=== PATIENT | female | born 1960 | race Asian ===

== ENCOUNTER 2016-07-23 10:45 | Emergency (ER) | payer OTHER ==
[2016-07-23 10:50] VITALS: BP 125/81; PULSE 90; TEMP 98.6; BMI 24.0
--- NOTE | 2016-07-23 12:04 | PDOC ---
History of Present Illness - General Chief Complaint: Cold Symptoms Stated Complaint: COUGH, FEVER Time Seen by Provider: 07/23/16 11:49 History Source: Patient - History of Present Illness Timing/Duration: reports: other Associated Symptoms: reports: cough, fever/chills. denies: earache, headache, nasal congestion, nasal drainage, shortness of breath, sore throat, wheezing Past History - Past Medical History Allergies/Adverse Reactions: Allergies Allergy/AdvReac Type Severity Reaction Status Date / Time Sulfa (Sulfonamide Allergy Verified 07/23/16 10:46 Antibiotics) sulfamethoxazole Allergy Verified 07/23/16 10:46 [From Bactrim] trimethoprim [From Bactrim] Allergy Verified 07/23/16 10:46 Home Medications: Ambulatory Orders Atorvastatin Ca [Lipitor] 10 mg PO HS 05/09/14 Calcium 500 mg PO DAILY 05/09/14 Calcium Polycarbophil [Fiber Tabs] 1 tab PO DAILY 05/09/14 Cholecalciferol (Vitamin D3) [Vitamin D3] 1,000 unit PO DAILY 05/09/14 Ciprofloxacin [Cipro -] 500 mg PO BID 05/09/14 Melatonin 0 mg PO HS 05/09/14 Metronidazole [Flagyl] 500 mg PO BID 05/09/14 Metronidazole [Flagyl] 500 mg PO Q12HR #20 tablet 05/09/14 Multivitamins [Multivit ([facility] Formulary)] 1 tab PO DAILY 05/09/14 Albuterol Sulfate Inhaler - [Ventolin HFA Inhaler -] 1 - 2 inh PO Q4H #1 inhaler 07/23/16 Hypercholesterolemia: Yes - Psycho/Social/Smoking Cessation Hx Anxiety: No Suicidal Ideation: No Smoking History: Never smoked Have you smoked in the past 12 months: No Information on smoking cessation initiated: No Hx Alcohol Use: No Drug/Substance Use Hx: No Substance Use Type: None Review of Systems - Review of Systems Constitutional: Yes: Fever Respiratory: Yes: Cough. No: Shortness of Breath, Wheezing ABD/GI: No: Diarrhea, Nausea, Vomiting *Physical Exam - Vital Signs Last Vital Signs Temp Pulse Resp BP Pulse Ox 98.6 F 90 18 125/81 100 07/23/16 10:46 07/23/16 10:46 07/23/16 10:46 07/23/16 10:46 07/23/16 10:46 - Physical Exam General Appearance: Yes: Appropriately Dressed. No: Apparent Distress HEENT: positive: Normal ENT Inspection, Normal Voice, TMs Normal, Pharynx Normal. negative: Scleral Icterus (R), Scleral Icterus (L) Neck: negative: Lymphadenopathy (R), Lymphadenopathy (L) Respiratory/Chest: positive: Lungs Clear, Normal Breath Sounds. negative: Respiratory Distress Cardiovascular: positive: Regular Rate, S1, S2 Integumentary: positive: Dry, Warm Neurologic: positive: Fully Oriented, Alert, Normal Mood/Affect Medical Decision Making - Medical Decision Making 07/23/16 12:02 56 yo F, no sig hx, here w/ cough and fever x 2 days. Also reports body aches. 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 Patient denying any shortness of breath or chest pain. Currently taking Tylenol. Patient stable with unremarkable exam in ED. Possible viral uri , influenza testing pending 07/23/16 12:34 Influenza negative. Pt now requesting refill of alb pump as she states she has a h/o asthma but no flares in years. Denies sob or wheezing currently. Dc w/ rx and PMD f/u as needed 07/23/16 12:36 *DC/Admit/Observation/Transfer Diagnosis at time of Disposition: URI (upper respiratory infection) Qualifiers: URI type: unspecified viral URI Qualified Code(s): J06.9 - Acute upper respiratory infection, unspecified; B97.89 - Other viral agents as the cause of diseases classified elsewhere - Discharge Dispostion Disposition: HOME Condition at time of disposition: Stable - Prescriptions Prescriptions: Albuterol Sulfate Inhaler - [Ventolin HFA Inhaler -] 1 - 2 inh PO Q4H #1 inhaler - Referrals Referrals: Josh Morris [Primary Care Provider] - - Patient Instructions Printed Discharge Instructions: DI for Viral Upper Respiratory Infection -- Adult Additional Instructions: Rest, maintain adequate hydration and take tylenol or motrin as needed - Post Discharge Activity Work/School Note: Back to Work
== END 2016-07-23 12:38 | disposition home or self-care (01) ==
LOC: JERFT 10:45
DX: J06.9 Acute upper respiratory infection, unspecified (principal); B97.89 Other viral agents as the cause of diseases classified elsewhere
CPT/HCPCS: 87804; 99281-25

== ENCOUNTER 2022-11-06 12:50 | Emergency (ER) | payer OTHER ==
[2022-11-06 13:02] VITALS: RESP 16; TEMP 99.9; BMI 22.4
[2022-11-06] MEDS ORDERED: ACETAMINOPHEN 1000 MG/100 ML BAG IVPB ONE (14:12)
[2022-11-06] MEDS ORDERED: LACTATED RINGERS SOLUTION 1000 ML INFUS.BAG IV ONE (14:17)
[2022-11-06] MEDS ORDERED: ACETAMINOPHEN INJECTION 100 ML IVPB ONE (14:19)
[2022-11-06 15:09] LABS: BASO % 0.4 % (0-2.0); EOS % 0.5 % (0-4.5); HEMATOCRIT 43.4 % (32.4-45.2); HEMOGLOBIN 14.9 GM/dL (10.7-15.3); LYMPH % 12.7 % (8-40); MCH 31.4 pg (25.7-33.7); MCHC 34.3 g/dl (32.0-36.0); MEAN CELL VOLUME 91.5 fl (80-96); MEAN PLT VOLUME 8.7 fl (7.5-11.1); NEUT % 76.4 % (42.8-82.8); PLATELET COUNT 158 10^3/uL (134-434); RBC 4.75 M/mm3 (3.60-5.2); RDW 12.8 % (11.6-15.6); WHITE BLOOD COUNT 10.4 K/mm3 (4.0-10.0)
[2022-11-06 15:14] LABS: INR 0.98 (0.83-1.09); PROTHROMBIN TIME (PATIENT) 11.4 SEC (9.7-13.0)
[2022-11-06 15:16] LABS: ACTIVATED PTT 36.2 SECONDS (25.2-36.5)
[2022-11-06 15:44] LABS: POTASSIUM 4.6 mmol/L (3.5-5.1)
[2022-11-06 15:48] LABS: ALBUMIN 3.4 g/dl (3.4-5.0); BLOOD UREA NITROGEN 13.1 mg/dL (7-18)
[2022-11-06 15:51] LABS: CREATININE 0.7 mg/dL (0.55-1.3)
[2022-11-06 15:53] LABS: BILIRUBIN,TOTAL 0.6 mg/dL (0.2-1)
[2022-11-06 18:25] VITALS: BP 122/71; PULSE 85
== END 2022-11-06 19:10 | disposition home or self-care (01) ==
LOC: JER 12:50
PROC: 3E033NZ Introduction of Analgesics, Hypnotics, Sedatives into Peripheral Vein, Percutaneous Approach (ICD-10-PCS; principal; 2022-11-06)
DX: K57.92 Diverticulitis of intestine, part unspecified, without perforation or abscess without bleeding (principal); Z20.822 Contact with and (suspected) exposure to COVID-19
CPT/HCPCS: 0241U-QW; 36415; 74177-TC; 80053; 83605; 85025; 85610; 85730; 86850; 86900; 86901; 87040; 93005; 93010; 99285-25; Q9967